=== PATIENT | female | born 1980 | race Caucasian/White ===

== ENCOUNTER 2024-03-15 06:06 | Day surgery (SDC) | payer BC, SELFPAY ==
[2024-03-14 07:02] VITALS: BMI 24.4
[2024-03-14 08:50] LABS: % Basophils 0.9 % (0-2); % Eosinophils 1.5 % (0-6); % Immature Granulocytes 0.2 % (0-0.5); % Lymphocytes 41.5 % (20.5-51.1); % Monocytes 8.7 % (1.7-9.3); % Neutrophils 47.2 % (42.2-75.2); Absolute Eosinophils 0.1 10^3/uL (0-0.7); Absolute Lymphocytes 1.9 10^3/uL (1.2-3.4); Absolute Monocytes 0.4 10^3/uL (0.1-0.6); Absolute Neutrophils 2.2 10^3/uL (1.4-6.5); Mean Corp Hgb Conc. 34.1 g/dL (33.0-37.0); Mean Corpuscular Hgb 32.5 pg (27.0-31.0); Mean Corpuscular Volume 95.1 fL (81.0-99.0); Mean Platelet Volume 11.2 fL (7.4-10.4); Nucleated Red Blood Cells % 0 %; Platelet Count 167 10^3/uL (130-400); Red Blood Cell Count 4.31 10^6/uL (4.20-5.40); Red Cell Dist. Width 11.3 % (11.5-14.5); White Blood Cell Count 4.6 10^3/uL (4.8-10.8)
[2024-03-14 09:32] LABS: Blood Urea Nitrogen 22 mg/dl (7-17); Carbon Dioxide 23 mmol/L (22-30); Chloride 105 mmol/L (98-107); Estimated Creatinine Clearance 102 ml/min; Glucose 79 mg/dl (70-99); Potassium 4.5 mmol/L (3.5-5.1); Sodium 134 mmol/L (135-145); eGFR > 60.00
[2024-03-14 09:33] LABS: Beta HCG Quantitative < 2.39 mIU/ml
[2024-03-15] VITALS (8 sets, daily range): BP systolic 91–104; BP diastolic 33–60; BMI 24.4
[2024-03-15] MEDS: NORMOSOL-R 1000 IV (06:34)
--- NOTE | 2024-03-15 08:10 | W.IMMPOSTOP ---
Surgical Immed Post Op Note
-
Primary Surgeon: Shanna Reyes DO
Assisting Surgeon: n/a
Pre-op Diagnosis: Menorrhagia
Post-op Diagnosis: same
Procedure Performed: Diagnostic hysteroscopy D&C
Anesthesia Type: general LMA Dr. Leary
Specimen / Cultures: 1. endocervical curettings 2. endometrial curettings
Estimated Blood Loss: less than 2 ml
Complications: none
Fluid deficit: 5ml NSS
Operative Findings: Uterus sounded to 6 cm, bilateral tubal ostia seen. No evidence of polyp, mass. Normal appearing lining.
Stable to recovery
Counts correct times 2.
Dictated.
== END 2024-03-15 10:25 | disposition home or self-care (01) ==
LOC: SDS 06:06
PROVIDERS: ATTENDING PHYSICIAN Obstetrics & Gynecology; FAMILY PHYSICIAN Student in an Organized Health Care Education/Training Program
DX: N92.0 Excessive and frequent menstruation with regular cycle (principal)
CPT/HCPCS: 58558; 88305; 36415; 80048; 84702; 85025; 86850; 86900; 86901

== ENCOUNTER → 2024-03-18 11:33 | Outpatient (REF) | payer BC, SELFPAY | LOC: WDC 11:33 | PROVIDERS: ATTENDING PHYSICIAN Nurse Practitioner Family; FAMILY PHYSICIAN Student in an Organized Health Care Education/Training Program | DX: Z12.31 Encounter for screening mammogram for malignant neoplasm of breast (principal) | CPT/HCPCS: 77063; 77067 ==

== ENCOUNTER → 2024-04-05 13:58 | Outpatient (REF) | payer BC, SELFPAY ==
[2024-04-08 04:32] LABS: HPV, High Risk Not Detected; HPV, High Risk Source Anal
== END ==
LOC: CLAB 13:58
PROVIDERS: ATTENDING PHYSICIAN Surgery
DX: Z86.19 Personal history of other infectious and parasitic diseases (principal)
CPT/HCPCS: 87624; 88112

== ENCOUNTER → 2024-04-19 07:58 | Outpatient (REF) | payer BC, SELFPAY | LOC: RAD 07:58 | PROVIDERS: ATTENDING PHYSICIAN Obstetrics & Gynecology; FAMILY PHYSICIAN Student in an Organized Health Care Education/Training Program | DX: N92.0 Excessive and frequent menstruation with regular cycle (principal); N94.6 Dysmenorrhea, unspecified | CPT/HCPCS: 76830; 76856 ==

== ENCOUNTER → 2024-05-02 06:35 | Day surgery (SDC) | payer BC, SELFPAY | LOC: GI 06:35 | PROVIDERS: ATTENDING PHYSICIAN Surgery | DX: Z12.11 Encounter for screening for malignant neoplasm of colon (principal); D12.7 Benign neoplasm of rectosigmoid junction; K64.8 Other hemorrhoids; K64.4 Residual hemorrhoidal skin tags | CPT/HCPCS: 45385; 88305 ==

== ENCOUNTER 2024-05-13 06:14 | Day surgery (SDC) | payer BC, SELFPAY ==
[2024-05-05 08:37] VITALS: BMI 23.7
[2024-05-05 10:28] LABS: % Basophils 0.6 % (0-2); % Eosinophils 0.6 % (0-6); % Immature Granulocytes 0.3 % (0-0.5); % Lymphocytes 21.8 % (20.5-51.1); % Monocytes 5.3 % (1.7-9.3); % Neutrophils 71.4 % (42.2-75.2); Absolute Lymphocytes 1.5 10^3/uL (1.2-3.4); Absolute Monocytes 0.4 10^3/uL (0.1-0.6); Absolute Neutrophils 4.8 10^3/uL (1.4-6.5); Hematocrit 43.1 % (37.0-47.0); Hemoglobin 14.9 g/dL (12.0-16.0); Mean Corp Hgb Conc. 34.6 g/dL (33.0-37.0); Mean Corpuscular Hgb 32.2 pg (27.0-31.0); Mean Corpuscular Volume 93.1 fL (81.0-99.0); Mean Platelet Volume 11.1 fL (7.4-10.4); Nucleated Red Blood Cells % 0 %; Platelet Count 199 10^3/uL (130-400); Red Blood Cell Count 4.63 10^6/uL (4.20-5.40); Red Cell Dist. Width 11.1 % (11.5-14.5); White Blood Cell Count 6.7 10^3/uL (4.8-10.8)
[2024-05-05 10:48] LABS: Blood Urea Nitrogen 17 mg/dl (7-17); Calcium 9.6 mg/dl (8.4-10.2); Carbon Dioxide 26 mmol/L (22-30); Chloride 101 mmol/L (98-107); Estimated Creatinine Clearance 88 ml/min; Glucose 75 mg/dl (70-99); Potassium 4.4 mmol/L (3.5-5.1); Sodium 136 mmol/L (135-145); eGFR > 60.00
[2024-05-05 11:04] LABS: Beta HCG Quantitative < 2.39 mIU/ml
[2024-05-13] VITALS (10 sets, daily range): BP systolic 96–127; BP diastolic 41–63; BMI 22.8
[2024-05-13] MEDS: HEPARIN 5000 UNITS SC (06:37)
[2024-05-13] MEDS: NEURONTIN 300 MG PO (06:37)
[2024-05-13] MEDS: TYLENOL 1000 MG PO (06:37)
[2024-05-13] MEDS: NORMOSOL-R 1000 IV ×2 (06:54→11:24)
--- NOTE | 2024-05-13 10:18 | W.IMMPOSTOP ---
Addendum entered and electronically signed by Shanna Reyes DO 05/13/24 23:32:
Correction:
Cushion Worker: TERE Wilhelm
Original Note:
Surgical Immed Post Op Note
-
Primary Surgeon: Shanna Reyes DO
Cushion Worker: Maddie Mullins PA-C
Pre-op Diagnosis: Menorrhagia, pelvic pain, left ovarian cyst, hx endometriosis
Post-op Diagnosis: same
Procedure Performed: Robotic assisted total laparoscopic hysterectomy bilateral salpingectomy, left ovarian cystectomy, excision possible fibroma from right ovary
Anesthesia Type: general Dr. Sesay
Specimen / Cultures: 1. uterus, cervix, bilateral fallopian tubes 2. left ovarian cyst wall 3. right ovary biopsy
Estimated Blood Loss: 10ml
fluids 1250ml
Urine output: 200ml clear yellow
Complications: none
Operative Findings: Normal appearing uterus, tubes. Left ovary with 3cm simple cyst. Right ovary with surface irregularity ? small fibroma. Multiple small clear vesicles on bilateral fallopian tubes. No evidence of adhesions. No evidence of
endometriosis in the pelvis.
Counts correct times 2
stable to recovery.
[2024-05-13] MEDS: ZOFRAN 4 MG IV ×2 (10:47→17:27)
[2024-05-13] MEDS: TORADOL 15 MG IV ×3 (10:58→22:33)
[2024-05-13 11:10] LABS: Hematocrit 42.8 % (37.0-47.0); Hemoglobin 14.2 g/dL (12.0-16.0)
[2024-05-13 11:31] LABS: Blood Urea Nitrogen 13 mg/dl (7-17); Calcium 8.3 mg/dl (8.4-10.2); Carbon Dioxide 26 mmol/L (22-30); Chloride 104 mmol/L (98-107); Estimated Creatinine Clearance 91 ml/min; Glucose 105 mg/dl (70-99); Potassium 4.3 mmol/L (3.5-5.1); Sodium 138 mmol/L (135-145); eGFR > 60.00
--- NOTE | 2024-05-13 13:14 | PTCARENOTE ---
Pt transferred to 219 from PACU. Sleepy, easily aroused. 4 small abd incisions intact with Dermabond. O2 via nc at 2l/m. IV infusing R hand. Husb at bedside. Pt tolerating ice chips. Requesting pain meds, Dr Reyes notified. Reports nausea with
movement.
[2024-05-13] MEDS: TYLENOL #3 2 TABLET PO ×2 (14:12→20:01)
--- NOTE | 2024-05-13 17:59 | W.PN.OBG.DWH ---
Today's Communication / Plan
-
analgesia
diet as axel
antiemetic prn
OOB
Labs in am
anticipate dc tomorrow
Assessment/Plan
-
Postop check s/p Robotic dx laparoscopy with lysis adhesions and fulgeration endometriosis
stable postop
changed meds to tyl #3.
Diet as axel
OOB
Anticipate dc home in morning. Pt declined discharge home today.
Subjective Data
-
Postop check (This is a delayed entry- pt was seen approx 14:30pm today)
Resting. Was asking for Tyl #3 instead of oxycodone. States Tyl #3 is only narcotic she can tolerate. does not want oxycodone or dilaudid.
Objective Data
-
Laboratory Results
05/13/24 10:57
05/13/24 10:57
Vital Signs
Temp Pulse Resp BP Pulse Ox
97.6 F 50 16 127/63 100
05/13/24 11:30 05/13/24 12:54 05/13/24 12:54 05/13/24 12:54 05/13/24 11:30
VSS afeb
abd: soft +bs nondistended inc cdi
ext: SCDs on
No active bleeding
--- NOTE | 2024-05-13 18:03 | PTCARENOTE ---
Pt awake and alert. States pain managed well with T3/Toradol meds. Tolerated house diet. Asst OOb to bathroom. Pt indep with care. IV capped, sequentials d/c'd. Zofran for mild nausea per pt request
[2024-05-13] MEDS: FLUSH (NSS) 3 FLUSH IV (22:36)
[2024-05-13] MEDS: ZESTRIL 10 MG PO (22:47)
[2024-05-14] MEDS: NORMOSOL-R IV (02:33)
[2024-05-14] MEDS: TORADOL 15 MG IV (04:43)
[2024-05-14] MEDS: FLUSH (NSS) 3 FLUSH IV (04:43)
[2024-05-14 04:45] VITALS: BP 109/45
[2024-05-14] MEDS: MYLICON 80 MG PO (04:50)
[2024-05-14] MEDS: ZOFRAN 4 MG IV (05:01)
[2024-05-14] MEDS: FLUSH (NSS) 2 FLUSH IV (05:03)
[2024-05-14 05:21] LABS: % Basophils 0.3 % (0-2); % Eosinophils 0.3 % (0-6); % Immature Granulocytes 0.3 % (0-0.5); % Lymphocytes 14.8 % (20.5-51.1); % Monocytes 5.1 % (1.7-9.3); % Neutrophils 79.2 % (42.2-75.2); Absolute Lymphocytes 1.7 10^3/uL (1.2-3.4); Absolute Monocytes 0.6 10^3/uL (0.1-0.6); Absolute Neutrophils 9.2 10^3/uL (1.4-6.5); Hematocrit 38.7 % (37.0-47.0); Hemoglobin 12.6 g/dL (12.0-16.0); Mean Corp Hgb Conc. 32.6 g/dL (33.0-37.0); Mean Corpuscular Hgb 31.6 pg (27.0-31.0); Nucleated Red Blood Cells % 0 %; Platelet Count 155 10^3/uL (130-400); Red Blood Cell Count 3.99 10^6/uL (4.20-5.40); Red Cell Dist. Width 11.1 % (11.5-14.5); White Blood Cell Count 11.6 10^3/uL (4.8-10.8)
[2024-05-14] MEDS: TYLENOL #3 2 TABLET PO ×2 (05:36→12:39)
[2024-05-14 05:54] LABS: Blood Urea Nitrogen 10 mg/dl (7-17); Carbon Dioxide 28 mmol/L (22-30); Chloride 105 mmol/L (98-107); Estimated Creatinine Clearance 91 ml/min; Potassium 4.6 mmol/L (3.5-5.1); Sodium 137 mmol/L (135-145)
--- NOTE | 2024-05-14 07:03 | PTCARENOTE ---
Dr. Chavez notified @ 2100 regarding temp of 100.0 @ 1945 05/13/24. Continue to monitor temp, CBC has already been ordered for am. Temp 98.4 @ 8855 05/13/25 and temp 98.1 @ 6525 05/14/24.
--- NOTE | 2024-05-14 08:05 | PTCARENOTE ---
Received pt AAOX3 pt states feeling well, slight nausea, vital signs 105/54 56 18 98.8 Apical regular, INT D/I right hand, lungs clear bilaterally encourage I.S 4 abdominal incisions Dry and Intact, positive bowel signsx4, pt oob urinating, scant
vaginal bleeding positive pedal pulses x4.
--- NOTE | 2024-05-14 09:36 | W.PN.OBG.DWH ---
Today's Communication / Plan
-
-we can monitor her this morning to see if her gas pain improves and anticipate d/c after lunch
Assessment/Plan
-
43yo POD#1 s/p Robotic assisted total laparoscopic hysterectomy bilateral salpingectomy, left ovarian cystectomy, excision possible fibroma from right ovary
-patient concerned about the amount of pain she is in. seems to be mainly gas/bowel in etiology and exam revealed hyperactive bowel sounds. advised trying to be upright, sitting in chair, ambulation should help with passing gas.
-diet as tolerated
-pain control prn. scripts already sent to pharmacy by Dr. Reyes
-advised we can monitor her this morning to see if her gas pain improves and anticipate d/c after lunch
Subjective Data
-
feeling a lot of 'intestinal pain' since early this AM, feels some nausea associated with this. Was able to pass a little gas but feels that she still needs to pass a lot more. able to eat very small amounts of PO intake. +void and ambulation to
bathroom. No bleeding. No f/c.
Objective Data
-
Laboratory Results
05/14/24 04:52
05/14/24 04:52
Vital Signs
Temp Pulse Resp BP Pulse Ox
98.1 F 54 18 109/45 100
05/14/24 04:45 05/14/24 04:45 05/14/24 04:45 05/14/24 04:45 05/13/24 11:30
Gen: nad aaox3
Abd: soft, nd, very mild ttp, +hyperactive bs throughout
incision: c/d/i
Ext: no ttp
[2024-05-14] MEDS: MOTRIN 600 MG PO (12:38)
--- NOTE | 2024-05-14 13:56 | PTCARENOTE ---
Addendum entered by Case Broderick RN 05/14/24 15:38:
md aware temp 99.0 no orders given
Original Note:
1200 vital signs,99/46 p 50 resp 18 temp 99.0 pt c/o abdomial pain motrin and tylenol given.
--- NOTE | 2024-05-14 15:49 | PTCARENOTE ---
1545 Pt okay for discharge. bp 104/63 62 16 temp 98.2 INT d/c catheter intact, pt states nausea and pain much better
== END 2024-05-14 16:17 | disposition home or self-care (01) ==
LOC: SDS 06:14
PROVIDERS: ATTENDING PHYSICIAN Obstetrics & Gynecology; FAMILY PHYSICIAN Student in an Organized Health Care Education/Training Program
DX: N83.02 Follicular cyst of left ovary (principal); N80.03 Adenomyosis of the uterus; N85.8 Other specified noninflammatory disorders of uterus; N92.0 Excessive and frequent menstruation with regular cycle; R10.2 Pelvic and perineal pain
CPT/HCPCS: 58571; 88305; 88307; 36415; 80048; 80051; 82565; 84520; 84702; 85014; 85018; 85025; 86850; 86900; 86901

== ENCOUNTER → 2024-06-27 17:51 | Outpatient (REF) | payer BC, SELFPAY ==
[2024-06-30 00:55] LABS: HPV, High Risk Not Detected; HPV, High Risk Source Anal
== END ==
LOC: CLAB 17:51
PROVIDERS: ATTENDING PHYSICIAN Physician Assistant
DX: Z86.19 Personal history of other infectious and parasitic diseases (principal)
CPT/HCPCS: 87624; 88112

== ENCOUNTER → 2025-03-24 11:39 | Outpatient (REF) | payer BC, SELFPAY | LOC: WDC 11:39 | PROVIDERS: ATTENDING PHYSICIAN Nurse Practitioner Family; FAMILY PHYSICIAN Student in an Organized Health Care Education/Training Program | DX: Z12.31 Encounter for screening mammogram for malignant neoplasm of breast (principal) | CPT/HCPCS: 77063; 77067 ==

== ENCOUNTER 2025-07-14 07:30 | Inpatient (IN) | payer BC, SELFPAY ==
[2025-07-13 19:13] VITALS: BP 112/69
[2025-07-13 19:51] LABS: Hematocrit 45.5 % (37.0-47.0); Hemoglobin 15.7 g/dL (12.0-16.0); Mean Corp Hgb Conc. 34.5 g/dL (33.0-37.0); Mean Corpuscular Volume 91.2 fL (81.0-99.0); Nucleated Red Blood Cells % 0 %; Platelet Count 156 10^3/uL (130-400); Red Cell Dist. Width 11.0 % (11.5-14.5)
[2025-07-13 19:55] LABS: ALT (SGPT) 13 U/L (0-35); AST (SGOT) 18 U/L (14-36); Albumin 4.3 g/dl (3.5-5.0); Alkaline Phosphatase 61 U/L (38-126); Blood Urea Nitrogen 17 mg/dl (7-17); Calcium 9.0 mg/dl (8.4-10.2); Carbon Dioxide 23 mmol/L (22-30); Chloride 104 mmol/L (98-107); Glucose 108 mg/dl (70-99); Lipase 45 U/L (23-300); Potassium 4.0 mmol/L (3.5-5.1); Sodium 135 mmol/L (135-145); Total Protein 7.1 g/dl (6.3-8.2); eGFR > 60.00
--- NOTE | 2025-07-13 23:32 | ED.GENMED ---
History of Present Illness
General
Chief Complaint: Abdominal Symptoms
Source: patient
Exam Limitations: none
Time Seen by Provider: 07/13/25 23:29
Nursing documentation reviewed up to this point in time: agreed with
History of Present Illness
History of Present Illness:
44-year-old female with past medical history of asthma, hypertension, endometriosis who presents emergency department today with concerns of nausea, generalized abdominal pain for the past 3 days. Patient reports this all started a few nights ago
during the evening when she started to have some diarrhea. Patient decided to drink some water and then the episodes of diarrhea became more frequent. She reports that anything she drinks or eats comes out of her immediately. She has also had
persistent nausea and dry heaving but no vomiting. She denies any fevers or chills. She denies bloody stools. She denies any recent antibiotics. She denies any recent travel outside of country. The stools are nonbloody. She denies any sick
contacts. She did have a hysterectomy for endometriosis and was told that there was some disease noted on her colon. She denies any dysuria. She denies any history of Crohn's or colitis. She has never had anything like this before.
Past History
Past History
ED Past Medical History: Other (endometriosis, migraine h/a )
ED Past Surgical History: Appendectomy and Other (Breast implants)
Social History
Tobacco: Non-smoker
Alcohol: Occasional
Drug: None
Personal:
Living: with family
Employment: Employed
Review of Systems
Review of Systems
All Other Systems: ROS reviewed and negative except as documented in HPI and ROS
Phy Exam
Physical Exam
Physical Exam:
General: Patient is well appearing and in no acute distress; non-toxic
Skin: Warm and dry, no rashes or lesions
Head: Normocephalic, atraumatic
Eyes: Sclera non-icteric. EOMs intact.
Cardiac: Slight tachycardia noted otherwise regular rhythm, no murmurs
Pulm: Normal respiratory effort, no wheezes, rales, rhonchi
Abdomen: Bilateral lower abdominal quadrant tenderness to palpation with guarding noted
Neuro: CN II-XII intact, no focal neurologic deficits.
Psychiatric: Appropriate mood and affect.
Sepsis
Sepsis Screening
Sepsis Assessment: Sepsis Ruled Out
Sepsis Screen
Sepsis Screen: Sepsis Ruled Out
Date: 07/14/25
Time: 07:04
Course
Orders/Labs/Results
Orders:
Orders
07/13/25 19:31
Complete Blood Count/With Diff Urgent
Comprehensive Metabolic Panel Urgent
HCG, Serum Qualitative Screen Urgent
Comment: ADDED
Lipase Urgent
07/13/25 23:45
C difficile Antigen & Toxins Urgent
RAFAEL Source: Feces/Stool
Specimen Description:
Date Specimen was Collected: 07/14/25
Time Specimen was Collected: 00:21
Stool Culture Urgent
RAFAEL Source: Feces/Stool
Specimen Description:
Date Specimen was Collected: 07/14/25
Time Specimen was Collected: 00:21
0.9% Sodium Chloride 1000 ml [Nss] 1,000 ml IV BOLUS
Ketorolac [Toradol] 15 mg IV NOW STA
Ondansetron Injectable [Zofran] 4 mg IV NOW STA
07/13/25 23:49
Add On- LAB Urgent
Tests Added?: beta hcg qual
07/14/25
CT Abd/pelvis W Iv Cont Urgent
Reason For Exam: right sided abdominal pain
07/14/25 03:13
0.9% Sodium Chloride 1000 ml [Nss] 1,000 ml IV BOLUS
07/14/25 03:14
Acetaminophen [Tylenol] 1,000 mg PO NOW STA
07/14/25 Breakfast
Clear Liquid
At Your Request: Full Participation
07/14/25 06:12
Admit/Transfer Patient As Directed
Co-Sign Provider:
Level of Care: Inpatient admission
Assign to:: Medical/Surgical
Physician / Group: [facility]
Diagnosis: Pancolitis
Reason for Hospitalization: Pancolitis
Expected length of stay greater than two midnights?: Yes
ELOS- Estimated Length of Stay in days: 2
I certify the patient meets the requirements for IP care: Yes
07/14/25 06:13
Code Status As Directed
Resuscitation Status: Full Code
PRN Pain Medication Management As Directed
May give lesser potent ordered pain med per pt: Yes
preference::
Protocol:: Medication orders for pain may be administered in a
manner that supports deferring to patient preference
when the pt is:
- Requesting an ordered lesser potent pain medication.
Least to most potent pain medications are defined
as: acetaminophen < NSAID < tramadol < opioids
(morphine, oxycodone, hydromorphone).
- Requesting a lesser dose of the same medication IF
ORDERED.
- Requesting a less intrusive route of administration
if both routes are prescribed by the provider (PO <
IV).
Abnormal Lab Results
07/13/25
19:31
MCH 31.5 H pg
(27.0-31.0)
RDW 11.0 L %
(11.5-14.5)
Absolute Neuts (auto) 8.3 H 10^3/uL
(1.4-6.5)
Neutrophils % 83.0 H %
(42.2-75.2)
Lymphocytes % 11.6 L %
(20.5-51.1)
Glucose 108 H mg/dl
(70-99)
07/13/25 19:31
07/13/25 19:31
Vital Signs
Initial and Last Documented VS:
Initial Vital Signs
Temp Pulse Resp BP Pulse Ox
98.7 F 89 16 112/69 97
07/13/25 19:13 07/13/25 19:13 07/13/25 19:13 07/13/25 19:13 07/13/25 19:13
Last Documented Vital Signs
Temp Pulse Resp BP Pulse Ox
98.7 F 59 18 96/54 96
07/13/25 19:13 07/14/25 01:30 07/14/25 01:30 07/14/25 03:01 07/14/25 03:30
MDM/Problems Addressed
Differential Diagnosis Includes:
Gastroenteritis, endometriosis, diverticulitis, Crohn's disease/UC
MDM/Problems Addressed:
44-year-old female with past medical history of asthma, hypertension, endometriosis who presents emergency department today with concerns of nausea, diarrhea, generalized abdominal pain for the past 3 days. She has not had any associated fevers or
chills. She has no associated bloody stools. No sick contacts. Physical exam, she is well-appearing no acute distress her vitals are stable she is afebrile. She does have diffuse tenderness noted on exam with guarding. She was treated with
Toradol, Zofran, and IV fluids. She went for CAT scan which revealed pancolitis. On reassessment, she states that the pain is very uncomfortable and she is requesting more medication. Did give Tylenol. On reassessment, she reports that the pain
is not any better. Did offer a small dose of morphine however patient reports that she has a severe reaction to narcotic pain medications. Second bag of IV fluid started. Stool culture sent off. Labs reviewed, no leukocytosis, normal BUN to
creatinine ratio. Electrolytes normal. Considering patient's persistent pain and discomfort, and hypotension will admit for continued IV hydration and pain control. Stool cultures pending. Reviewed case with ED attending. Will refer for
admission.
*Pulse Oximetry
SaO2: 97
Oxygen Mode of Delivery: Room air
Patient hypoxic: no
*Critical Care Note
Total Time (30-74mins, 75-104mins- exclusive of procedures): Not Applicable
ED Attending Note
-
Portions of this chart may have been created with voice recognition software.� Occasional wrong word or��sound alike� substitutions may have occurred due to the inherent limitations of voice recognition software.
Discharge Plan
Departure
Patient Disposition: Admit
Date of Disposition: 07/14/25
Time of Disposition: 04:50
Admit to: Med/Surg
Presentation/result/management discussed w/ accepting MD/DO: Hospitalist
Condition: Fair
Discharge Problem:
Pancolitis
Prescriptions:
No Action
lisinopril 10 mg Tablet
10 mg PO HS
magnesium 330 mg gum
1 gum PO HS
estradiol 0.025 mg/24 hr Patch Semiweekly
1 patch TRANSDERMAL ONCE
melatonin 1 mg Tablet
1 mg PO HS PRN (Reason: sleep)
Referrals:
Lidia Meneses MD [Family Provider, Internal Medicine]
Interventions
Interventions:
*Risk Screen - Suicide Last Done: 07/13/25 19:13
*General Assessment Last Done: 07/13/25 19:13
*Neglect/Abuse Screening Last Done: 07/13/25 19:13
*ED- Fall Risk Assessment Last Done: 07/13/25 19:13
*ED COVID-19 Vaccine History Last Done: 07/13/25 19:13
W[place]-Ngrthv-Dpmtlpvntr Assessment Last Done: 07/14/25 01:32
Discharge Date and Time
Print Language: KITTITIAN
[2025-07-14] VITALS (8 sets, daily range): BP systolic 93–126; BP diastolic 45–75; BMI 23.4
[2025-07-14] MEDS: TORADOL 15 MG IV (00:09)
[2025-07-14] MEDS: ZOFRAN 4 MG IV ×2 (00:09→12:30)
[2025-07-14] MEDS: NSS 1000 IV ×4 (00:09→14:33)
[2025-07-14 00:36] LABS: HCG, Serum Qualitative Screen Negative
[2025-07-14] MEDS: TYLENOL 1000 MG PO (03:46)
--- NOTE | 2025-07-14 06:16 | HPS.HSE ---
Family Physician
-
Family Physician: Lidia Meneses MD
Chief Complaint
-
Abd Pain, Diarrhea
History of Present Illness
Patient is a 44y F with PMH significant for endometriosis and hypertension who presents to ED complaining of abdominal pain and diarrhea x several days. Patient states that symptoms initially started Thursday evening. She had diarrhea and crampy
abdominal pain all day Thursday. She has been unable to eat / drink very much due to her symptoms. Patient notes that her symptoms seem worse in the evenings. Her symptoms seemed better on Thursday - but then recurred with increased severity on
and have persisted since that time.
Patient reports loose / soft stools that have become more yellow in color. No bloody / black stools.
No N/V. No recent travel, known sick contacts or unusual food exposures, etc.
Patient states that she had a colonoscopy last year that showed two polyps and was otherwise normal.
Medical History
Past Medical History
Past Medical History: Reports Other
Additional Past Medical History:
Endometriosis
Hypertension
Past Surgical History: Reports Other
Additional Past Surgical History:
Ex Lap (Endometriosis)
Hysterectomy
Social History
Tobacco: Former Smoker (Quit smoking 25 years ago.)
Alcohol: None
Drug: None
Family History
Family History: Other (Strong family history of premature CAD.)
Allergies / Home Medications
Allergies reflects when Allergies were last updated in [employer].
Home Medications with original date entered in [employer]
Allergy/Medication List:
Allergies
Allergy/AdvReac Type Severity Reaction Status Date / Time
Penicillins Allergy Unknown Verified 07/13/25 19:13
Vicryl sutures Allergy adverse Uncoded 07/13/25 19:13
result
with prior
surgery
Home Medications
lisinopril 10 mg tablet 10 mg PO HS 03/10/24
magnesium 1 gum PO HS 03/10/24
estradiol 0.025 mg/24 hr semiweekly transdermal patch 1 patch transdermal ONCE 07/14/25
melatonin 1 mg tablet 1 mg PO HS PRN sleep 07/14/25
Review of Systems
-
History Source: Patient
A 12 point ROS was completed and negative except as noted: Yes
Constitutional: Reports Fatigue; Denies Fever or Chills
Respiratory: Denies Cough or Trouble Breathing
Cardiac: Denies Chest Pain or Palpitations
Abdomen/GI: Reports Abdominal Pain, Diarrhea and Anorexia; Denies Nausea, Vomiting, Bloody Stools or Black Stools
Musculoskeletal: Denies Joint Pain or Edema
Neurological: Denies Dizzy or Headache
Psych: Denies Depression or Anxiety
Physical Exam
Vital Signs
Vital Signs
Temp Pulse Resp BP Pulse Ox
98.7 F 59 18 96/54 96
07/13/25 19:13 07/14/25 01:30 07/14/25 01:30 07/14/25 03:01 07/14/25 03:30
Physical Exam
General: Other (44y F in no acute distress.)
HEENT: Other (Dry MM.)
Respiratory: Clear; No Wheezes, Rales or Rhonchi
Cardiac: S1/S2 and Bradycardia; No Murmur
GI: Soft, Non Distended, Normal Bowel Sounds and Other (Pos tenderness - more on the R than the L of the abdomen. No rebound / guarding.)
Musculoskeletal: No Clubbing, No Cyanosis and No Edema
Neuro: AO x 3
Laboratory Results
-
07/13/25 19:31
07/13/25 19:31
Laboratory Results
Total Bilirubin 0.8 mg/dl (0.2-1.3) 07/13/25 19:31
AST 18 U/L (14-36) 07/13/25 19:31
ALT 13 U/L (0-35) 07/13/25 19:31
Alkaline Phosphatase 61 U/L (38-126) 07/13/25 19:31
Lipase 45 U/L (23-300) 07/13/25 19:31
Impression/Plan
-
A/P: Patient is a 44y F with PMH significant for endometriosis and hypertension who presents to ED complaining of abdominal pain and diarrhea x 3-4 days.
Pancolitis
- Admit for further evaluation and treatment.
- Likely infectious etiology - follow-up results of stool studies.
- Ceftriaxone / metronidazole for now.
- Supportive care including pain control, IVFs, etc.
- Follow for clinical improvement.
- Consider GI evaluation if symptoms worsen or persist.
Benign Hypertension
- Hold lisinopril acutely given borderline BP, volume losses, etc.
DVT Prophylaxis: Lovenox
Code Status: Full
[2025-07-14] MEDS: ROCEPHIN 1000 MG IV (07:17)
[2025-07-14] MEDS: FLAGYL 500 MG 100 IV ×2 (07:20→20:44)
[2025-07-14] MEDS: TORADOL 10 MG IV ×3 (07:21→20:02)
--- NOTE | 2025-07-14 11:16 | EDRN ---
Report given to JEREMY Barr. Patient moved to ED 15. notified of patient's c/o abdominal pain via [place] [facility].
--- NOTE | 2025-07-14 14:00 | PTCARENOTE ---
Report tubed floor and verified with phone call. Patient transferred via stretcher with all belongings accompanied by ED PCT and . Admission done and nursing assessment as documented.
[2025-07-14 14:17] LABS: C-Reactive Protein 51.20 mg/L (0.0-10.00)
--- NOTE | 2025-07-14 20:23 | PTCARENOTE ---
Pt stated that she hasn't had her BP meds, lisinopril, since Thursday night. Also stated that she usually takes 1MG of Melatonin to help her sleep. Neither med was ordered in [facility]. TT house provider. 3MG Melatonin was ordered. See MAR. Lisinopril is
being held due to soft BP's.
[2025-07-14] MEDS: FLUSH (NSS) 1 FLUSH IV (20:43)
[2025-07-14] MEDS: MELATONIN 3 MG PO (21:12)
[2025-07-15] MEDS: NSS 1000 IV ×2 (02:29→08:03)
[2025-07-15 07:45] VITALS: BP 136/75
[2025-07-15 07:46] VITALS: BP 120/65
[2025-07-15] MEDS: FLAGYL 500 MG 100 IV ×2 (08:04→21:06)
[2025-07-15] MEDS: STERILE WATER FOR INJECTION 10 ML IV (08:05)
[2025-07-15] MEDS: ROCEPHIN 1000 MG IV (08:05)
[2025-07-15] MEDS: ZOFRAN 4 MG IV (08:10)
[2025-07-15 08:28] LABS: Blood Urea Nitrogen 7 mg/dl (7-17); Calcium 7.9 mg/dl (8.4-10.2); Carbon Dioxide 24 mmol/L (22-30); Chloride 112 mmol/L (98-107); Estimated Creatinine Clearance 101 ml/min; Glucose 81 mg/dl (70-99); Potassium 4.0 mmol/L (3.5-5.1); Sodium 140 mmol/L (135-145); eGFR > 60.00
[2025-07-15] MEDS: NSS IV (09:33)
[2025-07-15 10:11] LABS: Hematocrit 37.1 % (37.0-47.0); Hemoglobin 12.5 g/dL (12.0-16.0); Mean Corp Hgb Conc. 33.7 g/dL (33.0-37.0); Mean Corpuscular Volume 93.2 fL (81.0-99.0); Platelet Count 123 10^3/uL (130-400); Red Cell Dist. Width 11.1 % (11.5-14.5)
--- NOTE | 2025-07-15 10:16 | PTCARENOTE ---
provider notified of drop in HBG from 15.7 to 12.5. New order to dc fluids as pt is tolerating full liquids, good oral intake.
--- NOTE | 2025-07-15 12:48 | W.PN.HOSP.TC ---
Today's Communication/Plan
-
Continue empirical antibiotics and supportive care. Check norovirus.
Assessment / Plan
Assessment / Plan
A/P: Patient is a 44y F with PMH significant for endometriosis and hypertension who presents to ED complaining of abdominal pain and diarrhea x 3-4 days.
Acute Pancolitis
- Likely infectious etiology - follow-up results of stool studies so far non diagnostic.
- Check Noroviurs
- Ceftriaxone / metronidazole for now.
- Supportive care including pain control.
- Follow for clinical improvement - advance to full liquids today.
- Consider GI evaluation if symptoms worsen or persist.
Benign Hypertension
- Hold lisinopril acutely given borderline BP, volume losses, etc.
DVT Prophylaxis: Lovenox
Code Status: Full
Anticipated Discharge: 24 - 48 hours
Subjective/Interval History
-
Date of Service: July 15, 2025
Improvement since yesterday.
Less abdominal discomfort and less frequency of stools.
No fever or chills.
Feels bit nauseous but thinks she can tolerate a full liquid diet.
Objective Data
-
Labs:
Laboratory Results
07/15/25
07:25
WBC 3.5 L
Hgb 12.5 D
Hct 37.1
Plt Count 123 L D
Sodium 140
Potassium 4.0
Chloride 112 H
Carbon Dioxide 24
BUN 7
Creatinine 0.6
Glucose 81
Calcium 7.9 L
Vital Signs:
Vital Signs
Temp Pulse Resp BP Pulse Ox
97.8 F 45 18 120/65 97
07/15/25 07:46 07/15/25 07:46 07/15/25 07:46 07/15/25 07:46 07/15/25 07:46
I&O
08/07/15/25 07/16/25
06:59 06:59 06:59
Intake Total 240 / 240
Balance 240 / 240
Physical Exam
-
General: Comfortable
Respiratory: Clear to Auscultation and Non Labored Respirations; Negative Accessory Resp Muscle Use
Cardiac: Regular Rhythm and S1/S2; Negative Tachycardic
GI: Soft, Nondistended, Normal Bowel Sounds and Tender (bryon in right abdo area but no rebound or guarding)
Neuro: AO x 3
Psych: Calm
Data Reviewed
-
Labs: Labs Reviewed by me
[2025-07-15 15:26] VITALS: BP 139/74
--- NOTE | 2025-07-15 15:45 | CM ---
Patient seen at bedside
IA completed
Lives with in 2 story home, 2 [address], flight to bed/bath
PLOF: independent
Denies DME
Denies vn/rehab
PCP: Nicolle Meneses
Pharmacy: [facility], [id number], [place]
plan: home, no needs anticipated
[2025-07-15] MEDS: MELATONIN 3 MG PO (21:12)
[2025-07-15 23:30] VITALS: BP 114/37
[2025-07-16 07:15] VITALS: BP 115/56
[2025-07-16] MEDS: ROCEPHIN 1000 MG IV (08:43)
[2025-07-16] MEDS: FLAGYL 500 MG 100 IV (08:43)
[2025-07-16] MEDS: STERILE WATER FOR INJECTION 10 ML IV (08:44)
[2025-07-16 08:53] LABS: Hematocrit 38.4 % (37.0-47.0); Hemoglobin 13.5 g/dL (12.0-16.0); Mean Corp Hgb Conc. 35.2 g/dL (33.0-37.0); Mean Corpuscular Volume 91.0 fL (81.0-99.0); Platelet Count 146 10^3/uL (130-400); Red Cell Dist. Width 11.1 % (11.5-14.5)
[2025-07-16 09:17] LABS: Blood Urea Nitrogen 6 mg/dl (7-17); Calcium 8.3 mg/dl (8.4-10.2); Carbon Dioxide 28 mmol/L (22-30); Chloride 107 mmol/L (98-107); Estimated Creatinine Clearance 101 ml/min; Glucose 80 mg/dl (70-99); Potassium 3.7 mmol/L (3.5-5.1); Sodium 140 mmol/L (135-145); eGFR > 60.00
--- NOTE | 2025-07-16 11:48 | W.DCSUMMARY ---
Addendum entered and electronically signed by Leroy Henson MD 07/16/25 13:31:
Today - she is tolerting LR diet albeit slight nausea. No fever .No tachycardia. BP stable.
Abdo -soft with mild discomfort in rigt side of abdomen but no rebound
Nontoxic
Lab data note with slight granulocytopenia ,normal Plts
Noro neg
So far neg stool cx
Clinically improved
DC home on oral abx
Advised to return back if fever,bloody stools , nausea or vomiting.
Original Note:
Discharge Summary
Discharge Data
Date of Admission: 07/14/25
Date of Discharge: 07/16/25
-
Pending Results: Yes (Stool culture report of Salmonella/Shigell/Campylobacter/Shiga toxin pendin)
Hospital Course
Primary diagnosis:
Acute pancolitis suspected infectious
Secondary diagnosis:
Primary hypertension
Hospital course:
44-year-old lady was in her usual state of health presents with acute onset of nonbloody diarrhea and associated abdominal pain. Symptoms started on Thursday of this week and they did get better on Thursday but then reoccurred on and
persisted ever since then reason she came in because of diarrheal stools every hour. They are nonbloody. No prior history of IBS or IBD. She has a new puppy but otherwise nothing unusual with her life routine. Did not eat anything unusual. No
travel.
CT of the abdomen showed pancolitis. Clinical concern was an infectious colitis. CRP was mildly elevated. ESR was normal. Many white cells were noted in the stools. Norovirus, C. difficile are negative. Rest of the stool culture are pending.
There is mild currently cytopenia which mainly think this may be viral but in view of severity of her diarrhea we started empirical antibiotics with ceftriaxone and Flagyl. She had improvements in 24 to 48 hours. Stool frequency improved. She was
tolerating low residue diet prior to discharge.
She was discharged home to complete total of 7-day course of antibiotics.
Discharge Plan
-
Patient Disposition: Home (Routine Discharge)
Discharge Diagnosis/Procedures: Acute pancolitis
Diet: Low Residue
Additional Diets: Low residue diet for a week and resume regular diet
Activity: As tolerated
Driving Restrictions: As prior to admission
Bathing Restrictions: None
Referrals:
Lidia Meneses MD [Family Provider, Internal Medicine] - in less than 1 week
Prescriptions:
New
acetaminophen 325 mg Tablet
650 mg PO Q4HPRN PRN (Reason: mild pain /fever >100.4) Qty: 1 0RF
ondansetron 4 mg tablet,disintegrating
4 mg PO Q8H PRN (Reason: nausea and vomiting) 3 Days Qty: 10 0RF
cefdinir 300 mg capsule
300 mg PO BID Qty: 8 0RF
metronidazole 500 mg tablet
500 mg PO BID Qty: 8 0RF
Continued
lisinopril 10 mg Tablet
10 mg PO HS
magnesium oxide 200 mg magnesium Tablet,Chewable
200 mg PO DAILY Qty: 0
estradiol 0.025 mg/24 hr Patch Semiweekly
1 patch TRANSDERMAL WESA
melatonin 1 mg Tablet
1 mg PO HSPRN PRN (Reason: sleep)
Discharge Orders:
Discharge Patient (As Directed); Ordered 07/16/25
Ordered By: Leroy Henson
Discharge Date and Time
Print Language: CHILEAN
[2025-07-16 12:30] VITALS: BP 124/59
--- NOTE | 2025-07-16 13:03 | CM ---
Patient chart reviewed
discharge today
PLAN: home, no needs
family to transport
== END 2025-07-16 13:12 | disposition home or self-care (01) | DRG 392 ==
LOC: 3 WEST ACU 07:30
PROVIDERS: Emergency Medicine; ADMITTING PHYSICIAN Hospitalist; ATTENDING PHYSICIAN Internal Medicine; EMERGENCY PHYSICIAN Emergency Medicine; FAMILY PHYSICIAN Student in an Organized Health Care Education/Training Program
DX: A09 Infectious gastroenteritis and colitis, unspecified (principal); A08.4 Viral intestinal infection, unspecified; I10 Essential (primary) hypertension; J45.909 Unspecified asthma, uncomplicated; D70.9 Neutropenia, unspecified; D75.9 Disease of blood and blood-forming organs, unspecified; N80.559 Endometriosis of other parts of the colon, unspecified depth; G43.909 Migraine, unspecified, not intractable, without status migrainosus; Z98.82 Breast implant status; Z90.49 Acquired absence of other specified parts of digestive tract; Z87.891 Personal history of nicotine dependence; Z82.49 Family history of ischemic heart disease and other diseases of the circulatory system; Z88.0 Allergy status to penicillin; Z91.048 Other nonmedicinal substance allergy status; Z90.710 Acquired absence of both cervix and uterus
CPT/HCPCS: 74177; 80048; 80053; 83690; 84703; 85025; 85027; 85652; 86140; 87045; 87046; 87324; 87427; 87449; 87798; 89055; 96361; 96365; 96375; 99284; Q9967